=== PATIENT | female | born 1955 | race Caucasian/White ===

== ENCOUNTER → 2020-07-06 15:37 | Outpatient (BNVA) | payer MEDICARE, SELFPAY | PROVIDERS: Family Provider Family Medicine; Visit Provider Nurse Practitioner | DX: M19.041 Primary osteoarthritis, right hand (principal); M25.441 Effusion, right hand; M79.641 Pain in right hand | CPT/HCPCS: 73130 ==

== ENCOUNTER 2020-07-18 14:06 | Outpatient (CLI) | payer MEDICARE, SELFPAY ==
--- NOTE | 2020-07-18 14:25 | MM_ITS ---
WS: [id number] BILATERAL DIGITAL DIAGNOSTIC MAMMOGRAM MAMMOGRAPHY WITH CAD CLINICAL INFORMATION: MICROCALCIFICATIONS LT BREAST COMPARISON: TECHNIQUE: Bilateral CC, MLO, and ML views. FINDINGS: Scattered fibroglandular densities bilaterally. Spot magnification views of the previously described calcifications. Stable punctate calcifications upper outer quadrant. A few clusters of calcifications similar in appearance compared to the prior examination without significant change. No other new abn ormalities. MM/[place] [id number] IMPRESSION: BI-RADS: 2-Benign FOLLOW UP: 1 Year Follow-up Recommend return to annual screening mammography.
== END 2020-07-18 14:07 | disposition home or self-care (01) ==
LOC: RADSHAW 14:14
PROVIDERS: PCP Family Medicine; Visit Provider Family Medicine
DX: R92.1 Mammographic calcification found on diagnostic imaging of breast (principal)
CPT/HCPCS: 77066

== ENCOUNTER → 2022-02-14 10:28 | Outpatient (BNVA) | payer MEDICARE, SELFPAY | PROVIDERS: PCP Family Medicine; Visit Provider Internal Medicine Cardiovascular Disease | DX: I25.10 Atherosclerotic heart disease of native coronary artery without angina pectoris (principal); E78.00 Pure hypercholesterolemia, unspecified; I10 Essential (primary) hypertension; I47.1 Supraventricular tachycardia | CPT/HCPCS: 99213 ==

== ENCOUNTER → 2022-05-29 10:53 | Outpatient (BNVA) | payer MEDICARE, SELFPAY | PROVIDERS: PCP Family Medicine; Visit Provider Family Medicine | DX: R30.0 Dysuria (principal); N39.0 Urinary tract infection, site not specified | CPT/HCPCS: 81000; 87077; 87086; 87184 ==

== ENCOUNTER → 2023-01-01 09:29 | Outpatient (BNVA) | payer MEDICARE, SELFPAY | PROVIDERS: PCP Family Medicine; Visit Provider Family Medicine | DX: R51.9 Headache, unspecified (principal) | CPT/HCPCS: 85651; 86140 ==

== ENCOUNTER → 2023-02-19 15:11 | Outpatient (BNVA) | payer MEDICARE, SELFPAY | PROVIDERS: PCP Family Medicine; Visit Provider Internal Medicine Cardiovascular Disease | DX: I47.1 Supraventricular tachycardia (principal); I25.10 Atherosclerotic heart disease of native coronary artery without angina pectoris; I10 Essential (primary) hypertension; E78.00 Pure hypercholesterolemia, unspecified; Z79.82 Long term (current) use of aspirin | CPT/HCPCS: 99214 ==

== ENCOUNTER 2023-05-15 09:15 | Outpatient (CLI) | payer MEDICARE, SELFPAY ==
--- NOTE | 2023-05-15 09:36 | MM_ITS ---
WS: [id number] Bilateral screening 3D tomosynthesis digital mammogram, 05/15/2023 Clinical Data: Z00.00 - Encounter for general adult medical examination ... Comparison: 07/18/2020, 10/14/2018, 01/15/2016, 06/27/2013, 06/25/2012, 06/13/2009. Findings: The breast parenchymal pattern shows fibroglandular tissue. No spiculated masses or clustered calcifi cations are seen. There are no secondary signs of carcinoma. Impression: 1. Negative bilateral mammogram unchanged. 2. Recommend annual screening mammograms. MM/[place] [id number] BIRADS: 1-Negative FOLLOW UP: 1 Year Follow-up The CAD sales store checker was used.
== END 2023-05-15 09:16 | disposition home or self-care (01) ==
PROVIDERS: PCP Family Medicine; Visit Provider Family Medicine
DX: Z12.31 Encounter for screening mammogram for malignant neoplasm of breast (principal)
CPT/HCPCS: 77063; 77067

== ENCOUNTER → 2023-06-10 08:19 | Outpatient (BNVA) | payer MEDICARE, SELFPAY | PROVIDERS: PCP Family Medicine; Visit Provider Family Medicine | DX: N39.0 Urinary tract infection, site not specified (principal) | CPT/HCPCS: 81000; 87086 ==

== ENCOUNTER → 2023-07-01 12:01 | Outpatient (BNVA) | payer MEDICARE, SELFPAY | PROVIDERS: PCP Family Medicine; Visit Provider Family Medicine | DX: N39.0 Urinary tract infection, site not specified (principal) | CPT/HCPCS: 81000; 87077; 87086; 87184 ==

== ENCOUNTER → 2023-07-15 09:49 | Outpatient (BNVA) | payer MEDICARE, SELFPAY | PROVIDERS: PCP Family Medicine; Visit Provider Family Medicine | DX: N39.0 Urinary tract infection, site not specified (principal) | CPT/HCPCS: 81000 ==

== ENCOUNTER → 2023-08-06 14:24 | Outpatient (BNVA) | payer MEDICARE, SELFPAY | PROVIDERS: PCP Family Medicine; Visit Provider Family Medicine | DX: N39.0 Urinary tract infection, site not specified (principal) | CPT/HCPCS: 81003; 87077; 87086; 87184 ==

== ENCOUNTER → 2024-06-14 08:31 | Outpatient (BNVA) | payer MEDICARE, SELFPAY | PROVIDERS: PCP Family Medicine; Visit Provider Family Medicine | DX: Z00.00 Encounter for general adult medical examination without abnormal findings (principal) | CPT/HCPCS: 80053; 80061; 83721; 85025 ==

== ENCOUNTER → 2024-06-20 15:15 | Outpatient (BNVA) | payer MEDICARE, SELFPAY | PROVIDERS: PCP Family Medicine; Visit Provider Internal Medicine Cardiovascular Disease | DX: I10 Essential (primary) hypertension (principal); R00.2 Palpitations; Z82.49 Family history of ischemic heart disease and other diseases of the circulatory system | CPT/HCPCS: 99214 ==

== ENCOUNTER 2024-07-04 14:15 | Outpatient (CLI) | payer MEDICARE, SELFPAY ==
--- NOTE | 2024-07-04 14:30 | MM_ITS ---
WS: [id number] BILATERAL 3D TOMOSYNTHESIS DIGITAL SCREENING MAMMOGRAPHY WITH CAD CLINICAL INFORMATION: screening HISTORY: Screening mammogram. No current complaints. COMPARISON: 2022 and multiple prior mammograms dating back to 2011 TECHNIQUE: Bilateral CC and MLO views. FINDINGS: Scattered fibroglandular densities bilaterally. No suspicious focal mass, asymmetry, calcifications, or architectural distortion. No evidence of malignancy. Punctate cluster calcifications LEFT breast a re stable since 2011. Faint vascular calcifications. MM/MM scr tomosynthesis [id number] IMPRESSION: DENSITY: There are scattered areas of fibroglandular density. BI-RADS: 2 - Benign. FOLLOW UP: 1 Year Follow-up Recommend return to annual screening mammography.
--- NOTE | 2024-07-04 15:00 | XR_ITS ---
WS: [id number] SCREENING DEXA SCAN [employer] [facility] CLINICAL INFORMATION: screening COMPARISON: 2019 FINDINGS: The LEFT forearm bone mineral density measures 0.76. This corresponds to a T score score of -1.0 and Z score of 0.7. Left femoral neck bone mineral density measures 0.929 g/cm2. This corresponds to a T score of -0.6 an d Z score of 0.9. Right femoral neck bone mineral density measures 0.949 g/cm2. This corresponds to a T score -0.5of an d Z score of 1.0. Mean femoral neck bone mineral density measures 0.939 g/cm2. This corresponds to a T score of -0.5 an d Z score of 1.0. XR/XR DEXA axial skeleton* [id number] IMPRESSION: Osteopenia LEFT forearm. Normal bone mineralization femoral necks. Patient's FRAX calculated 10 year probability for major osteoporotic fracture i s 15.7% and osteoporotic hip fracture is 2.1%. Bone marrow density in the LEFT forearm decreased -3.0% Bone mineral density in the femoral necks increased 1.0%
== END 2024-07-04 14:16 | disposition home or self-care (01) ==
LOC: RAD 14:16
PROVIDERS: PCP Family Medicine; Visit Provider Family Medicine
DX: Z12.31 Encounter for screening mammogram for malignant neoplasm of breast (principal); R92.323 Mammographic fibroglandular density, bilateral breasts; R92.1 Mammographic calcification found on diagnostic imaging of breast; Z13.820 Encounter for screening for osteoporosis; M85.80 Other specified disorders of bone density and structure, unspecified site; Z00.00 Encounter for general adult medical examination without abnormal findings
CPT/HCPCS: 77063; 77067; 77080

== ENCOUNTER 2024-07-20 13:07 | Outpatient (CLI) | payer MEDICARE, SELFPAY ==
--- NOTE | 2024-07-20 13:10 | XR_ITS ---
WS: [id number] XR foot LT 2V [id number] REASON FOR EXAM: left foot pain FINDINGS: No acute fracture or periosteal reaction. Joint spaces are intact and well preserved. Normal joint alignments. No radiopaque soft tissue foreign body. XR/XR foot LT 2V [id number] IMPRESSION: No significant abnormality.
== END 2024-07-20 13:08 | disposition home or self-care (01) ==
LOC: LAB 13:08 → RAD 13:09
PROVIDERS: PCP Family Medicine; Visit Provider Family Medicine
DX: M79.672 Pain in left foot (principal)
CPT/HCPCS: 73620

== ENCOUNTER → 2024-08-16 15:10 | Outpatient (BNVA) | payer MEDICARE, SELFPAY | PROVIDERS: PCP Family Medicine; Visit Provider Family Medicine | DX: J06.9 Acute upper respiratory infection, unspecified (principal) | CPT/HCPCS: 87400; 87426 ==

== ENCOUNTER → 2024-12-06 08:24 | Outpatient (BNVA) | payer MEDICARE, SELFPAY | PROVIDERS: PCP Family Medicine; Visit Provider Family Medicine | DX: F32.A Depression, unspecified (principal); I10 Essential (primary) hypertension; E78.00 Pure hypercholesterolemia, unspecified; I25.10 Atherosclerotic heart disease of native coronary artery without angina pectoris; R23.2 Flushing; R00.2 Palpitations; Z82.49 Family history of ischemic heart disease and other diseases of the circulatory system | CPT/HCPCS: 80053; 80061; 84443; 85025; 86140 ==

== ENCOUNTER → 2025-06-07 08:39 | Outpatient (BNVA) | payer MEDICARE, SELFPAY | PROVIDERS: PCP Family Medicine; Visit Provider Family Medicine | DX: I25.10 Atherosclerotic heart disease of native coronary artery without angina pectoris (principal); R07.9 Chest pain, unspecified; I10 Essential (primary) hypertension; E78.00 Pure hypercholesterolemia, unspecified | CPT/HCPCS: 80053; 80061; 83721; 85025 ==

== ENCOUNTER 2025-06-19 08:01 | Outpatient (CLI) | payer MEDICARE, SELFPAY ==
--- NOTE | 2025-06-19 | ECG_ITS ---
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 Interpretive Statements Lung unchanged pre/post procedure; Intraprocedure shortess of breath; Symptoms resoled by discharge PROCEDURE: At the baseline, the EKG revealed normal sinus rhythm with some early repolarization changes in the inferior leads. The baseline heart was 71 bpm with a blood pressue of 138/86 mm of Hg Lexiscan was infused over a period of 20 seconds. A total of 0.4 milligrams of Lexiscan was infused. The stress phase was continued for a total of 5 minutes. Heart rate at the end of the stress phase was 82 bpm with a blood pressure 131/84 mm of Hg. The EKG at the peak infusion revealed no significant changes. Sestamibi was injected 20 seconds after the Lexiscan infusion. Heart rate at the end of the recovery phase was 78 bpm with a blood pressure of 122/74 mm of Hg. CONCLUSION: 1. No significant EKG changes with the LexiScan infusion 2. No LexiScan induced chest pain or cardiac arrhythmia 3. Normal blood pressure and heart rate response 4. Sestamibi/sestamibi perfusion scan pending; see separate report. Electronically Signed On 06-23-2025 20:57:49 [employer]OD PILE DRIVER OPERATOR by Johny Martins M.D. [email or web address]
--- NOTE | 2025-06-19 08:07 | NMCV_ITS ---
NM shira perf SPECT r/s* [id number] Nova Blair Age: 69 Gender: F : 1955 Exam Date: 06/19/2025 08:51 Ordering Phys: Benton Navarro MD Technologist: AMANDA Alcocer Exam Location: [facility] Indications: cp STRESS TEST [facility] IMAGE PROTOCOL Rest/Stress 1 Lexiscan Day Radiopharmaceutical Dose (mCi) Administration Site Administered by Rest: Tc-99m 10.9 IV Rianna Raymond, HOE WORKER Sestamibi Stress:Tc-99m 32.4 IV Rianna Segundo, HOE WORKER Sestamibi Rest: 19-Jun-2025 60 Discovery 630 Stress: 19-Jun-2025 30 Discovery 630 0.4mg Lexiscan. Images obtained in supine and prone position. SPECT RESULTS Technical Quality: Good Raw Data Analysis: Normal Image Corrections: No attenuation or motion correction applied Summed Stress Score: 3 Summed Rest Score: 3 Summed Difference Score: 1 PERFUSION FINDINGS Small to moderate area of minimal to moderately decreased tracer uptake involving the mid inferolateral and apical lateral segments. No significant reversibility was noted in these regions. FUNCTIONAL RESULTS (calculated via Gated SPECT) Stress Image LV EF (%): 84 Stress EDV (mL):51 TID: 1.3 Stress ESV (mL):8 FUNCTIONAL FINDINGS: Segmental wall motion analysis revealing no gross wall motion abnormalities. The transischemic dilatation ratio was found to be elevated to 1.3 IMPRESSIONS 1. Myocardial perfusion imaging revealing fairly uniform myocardial tracer uptake with no significant perfusion abnormalities 2. Normal LV ejection fraction 84%. 3. LV wall motion analysis revealing no gross wall motion abnormalities. 4. Normal LV volume 5. Elevated transient ischemic dilatation ratio, may suggest endocardial ischemia. However the positive predictive value of this finding is limited especially in the absence of any other abnormal objective findings Dr Johny Martins MD FACC (Electronically Signed) Final Date: 19 June 2025 13:30 S
[2025-06-19 08:16] VITALS: BMI 24.7
[2025-06-19 09:32] VITALS: BP 138/84; PULSE 78
== END 2025-06-19 08:02 | disposition home or self-care (01) ==
LOC: CDL 08:02
PROVIDERS: PCP Family Medicine; Visit Provider Family Medicine
DX: R07.9 Chest pain, unspecified (principal)
CPT/HCPCS: 36415; 78452; 93017; 96374; A9500; J2785